=== PATIENT | male | born 1930 | race Caucasian/White ===

== ENCOUNTER → 2017-02-16 | Outpatient (CLI) | payer OTHER, BC ==
[2017-02-16 10:09] LABS: BASO % 0.4 %; BASO ABS # 0.02 K/uL (0-0.2); COMPLETE YES; EOS % 1.6 %; HEMATOCRIT 41.9 % (42-52); LYMPH ABS # 0.89 K/uL (1.2-3.4); MEAN CELL VOLUME 95.2 fL (80-100); MEAN CORPUSCULAR HEMOGLOBIN 31.1 pg (25-34); MEAN CORPUSCULAR HGB CONC 32.7 g/dl (32-36); MEAN PLATELET VOLUME 9.9 fL (7.4-10.4); MONO % 8.1 %; NEUT % 69.9 %; PLATELET COUNT 148 K/uL (130-400); WHITE BLOOD COUNT 4.46 K/uL (4.8-10.8)
[2017-02-16 10:37] LABS: ALT/SGPT 23 U/L (12-78); AST/SGOT 19 U/L (15-37); BLOOD UREA NITROGEN 20 mg/dl (7-18); BUN/CREATININE RATIO 16.4 (10-20); CALCIUM 8.9 mg/dl (8.5-10.1); CARBON DIOXIDE 35 mmol/L (21-32); CHLORIDE 105 mmol/L (98-107); GLUCOSE 118 mg/dl (70-99); SODIUM 141 mmol/L (136-145)
[2017-02-16 10:39] LABS: ALKALINE PHOSPHATASE 62 U/L (45-117)
== END | disposition home or self-care (01) ==
LOC: C.LABVPSUW 08:51
PROVIDERS: ATTEND Internal Medicine Critical Care Medicine
DX: D64.9 Anemia, unspecified (principal); N28.9 Disorder of kidney and ureter, unspecified

== ENCOUNTER → 2017-05-05 | Outpatient (CLI) | payer OTHER, BC ==
--- NOTE | 2017-05-05 14:14 | DIAGNOSTIC IMAGING REPORT ---
CAROTID DOPPLER NECK ART CLINICAL HISTORY: 87 years-old Male presenting with I65.29 Carotid artery stenosisOne year repeat. E X0D E [id number]. TECHNIQUE: Real-time grayscale and color and spectral Doppler ultrasound imaging of the bilateral carotid arteries was performed. NASCET criteria was used in evaluating this study. COMPARISON: 04/27/2016. FINDINGS: Right: Common carotid: Atherosclerosis. Peak systolic velocity 141 cm/s. Internal carotid artery: Atherosclerosis of the proximal ICA. Peak systolic velocity 224 cm/s. Systolic ratio: 1.6. External carotid artery: Atherosclerosis. Peak systolic velocity 241 cm/s. Left: Common carotid: Atherosclerosis. Peak systolic velocity 129 cm/s and peak systolic velocity 1 40 cm/s at the carotid bulb. Internal carotid artery: Atherosclerosis of the proximal ICA. Peak systolic velocity 105 cm/s. Systolic ratio: 0.8. External carotid artery: Atherosclerosis. Peak systolic velocity 131 cm/s. Bilateral antegrade flow within the vertebral arteries. Reference ranges: Stenosis measurements are compared to reference velocity parameters. ICA peak systolic velocity (PSV) < 125 cm/s normal or indicating < 50% stenosis; ICA PSV 125-230 cm/s equivalent to 50-69% stenosis; ICA PSV > 230 cm/s equivalent to greater than or equal to 70% stenosis. ICA PSV to common carotid artery PSV ratio < 2 normal or < 50% stenosis; 2-4 equates to 50-69% stenosis, > 4 equates to greater than or equal to 70% stenosis. Normal ICA end-diastolic velocity less than 40. Blood pressure Brachial: Right: 119/78 mmHg, Left: 125/80 mmHg. IMPRESSION: 1. Elevated velocity in the right internal carotid artery consistent with hemodynamically significant stenosis (50-69% stenosis). No interval worsening from prior exam. 2. Extensive atherosclerosis. Electronically signed by: Viet Candelaria M.D. 05/05/2017 2:13 PM Dictated Date/Time: 05/05/2017 2:06 PM
== END | disposition home or self-care (01) ==
LOC: C.ULTR 13:14
PROVIDERS: ATTEND Surgery
DX: I65.29 Occlusion and stenosis of unspecified carotid artery (principal)

== ENCOUNTER → 2018-02-04 | Outpatient (CLI) | payer OTHER, BC ==
[2018-02-04 11:03] LABS: BLOOD UREA NITROGEN 27 mg/dl (7-18); CALCIUM 8.6 mg/dl (8.5-10.1); CARBON DIOXIDE 31 mmol/L (21-32); GLUCOSE 95 mg/dl (70-99); POTASSIUM 3.5 mmol/L (3.5-5.1); SODIUM 141 mmol/L (136-145)
== END ==
LOC: C.LABVPSUW 10:35
PROVIDERS: ATTEND Internal Medicine Critical Care Medicine
DX: I10 Essential (primary) hypertension (principal)